=== PATIENT | female | born 1985 ===

== ENCOUNTER 2017-08-16 04:00 | Inpatient (IN) ==
[2017-08-16] MEDS ORDERED: miSOPROStol 25 MCG TABLET VG PRN (08:59)
[2017-08-16] MEDS ORDERED: Ondansetron 4 MG/2 ML VIAL IVP PRN ×2 (08:59→10:49)
[2017-08-16] MEDS ORDERED: Famotidine 20 MG/2 ML VIAL IVP PRN (08:59)
[2017-08-16] MEDS ORDERED: *HR* Nalbuphine 10 MG/ML AMPUL IVP PRN (08:59)
[2017-08-16] MEDS ORDERED: Metoclopramide 10 MG/2 ML VIAL IVP PRN (08:59)
[2017-08-16] MEDS ORDERED: Naloxone 0.4 MG/ML INJ IVP PRN ×2 (08:59→10:49)
[2017-08-16] MEDS ORDERED: Ringers Solution, Lactated 1,000 ML IVC SCH (09:00)
--- NOTE | 2017-08-16 09:01 | OB/GYN History & Physical ---
Date of Encounter: 08/16/17 Time of Encounter: 09:01 Assessment and Plan (1) 40 weeks gestation of Current visit: Yes Status: Acute shortly after the patient arrived on L&D, she went to the bathroom and when she got on the bed, there was a prolonged deceleration lasting about 6 mins. I had a conversation with her and her about giving her a break for about two hrs before attempting induction. heart rate is CAT 1 now. History of Present Illness HPI: Ms. Beasley is a 32 year old female @ 40+2 weeks who presents to the office for IOL. She does not report LOF or VB, she has occassional ctxs. She is on suppressive therapy with Valtrex, GBS neg. Past Med Surg Social Fam HX - Past Medical History Medical history: asthma Psychiatric history: no psych history - Past Surgical History Surgical History: no surgical history - Social History Smoking Status: Never smoker Smokeless Tobacco Status: No Alcohol use: none Drug use: none - Family History Mother Family Member Ethnicity: Non- Living Status: Still Living Hx Family Cardiac Disorders: No Hx Family Respiratory Disorders: No Hx Family Cancer: No Hx Family GI Disorders: No Hx Family Endocrine Disorder: No Hx Family Neuromuscular Disorders: No Hx Family Neurologic Disorders: No Hx Family HEENT Disorders: No Hx Family Autoimmune Disorders: No Obstetrical History - Pregnancies : 1 Medications and Allergies Vit Calc,Iron,Folic [ Vitamins] 1 / PO DAILY 05/25/17 [History] 3 Allergy/AdvReac Type Severity Reaction Status Date / Time No Known Allergies Allergy Verified 05/01/17 13:16 Review of System OB All systems PM: reviewed and no additional remarkable complaints except as stated Exam - Constitutional Constitutional: no acute distress - HEENT HEENT: PERRL - Neck Neck exam: full ROM - Lungs Respiratory exam: CTAB - Cardiovascular Cardiovascular exam: RRR - Abdomen Abdomen: Present: gravid - Cervix Dilation: 1 Effacement: 80 Results Result Diagrams: 08/16/17 09:00 All other labs normal.
[2017-08-16 09:34] LABS: Basophils % 0.1 %; Eosinophils # 0.1 K/mcL (0.0-0.6); Eosinophils % 1.9 %; Hematocrit 38.1 % (35.3-44.9); Hemoglobin 13.1 g/dL (11.5-15.4); Immature Granulocytes % 0.4 % (0-4); Lymphocytes # 1.2 K/mcL (0.6-4.6); Lymphocytes % 17.6 %; Mean Corpuscular HGB Conc 34.4 g/dL (31.6-35.5); Mean Corpuscular Hemoglobin 30.1 pg (28.0-33.3); Mean Corpuscular Volume 87.6 fL (83.0-100.0); Mean Platelet Volume 9.4 fL (9.4-12.4); Monocytes # 0.6 K/mcL (0.0-1.3); Monocytes % 7.9 %; Platelet Count 218 K/mcL (140-400); Red Blood Count 4.35 M/mcL (3.82-4.97); Red Cell Distribution Width 13.7 % (11.5-14.5); Segmented Neutrophils % 72.1 %
[2017-08-16 10:04] LABS: Amphetamine Screen,Urine Negative ng/mL (Cutoff=1000); Barbiturate Screen,Urine Negative ng/mL (Cutoff=200); Benzodiazepines Screen,Urine Negative ng/mL (Cutoff=200); Cannabinoid Screen,Urine Negative ng/mL (Cutoff = 50); Cocaine Screen,Urine Negative ng/mL (Cutoff= 300); Opiate Screen,Urine Negative ng/mL (Cutoff=300); Phencyclidine Screen,Urine Negative ng/mL (Cutoff=25)
--- NOTE | 2017-08-16 10:07 | Anesthesia Evaluation PreOp ---
Date of Encounter: 08/16/17 Time of Encounter: 10:05 - Past History Planned Operation: Primary Cardiac History: Denies any Significant Hx, Arrhythmia (Hx of arrythmia evaluated by dx approximately 2016 in [place] - Not requiring any medications.) Pulmonary History: Asthma (uses ProAir inhaler as needed), THERESA Dx (denies) [employer] History: Denies Any Significant HX Other Medical History: Denies Any Significant HX Anesthesia History: No Prior Anesthetic Complications, Past Anesthesia (B- inguinal hernia repair as child), MH (NO Fam Hx of MH) : Yes (40 +2/7) Alcohol Use: none Drug use: none Medications and Allergies Vit Calc,Iron,Folic [ Vitamins] 1 / PO DAILY 05/25/17 [History] 3 Allergy/AdvReac Type Severity Reaction Status Date / Time No Known Allergies Allergy Verified 05/01/17 13:16 - Meds/Allergy Pre-op Review Medications Reviewed: Yes Allergies Reviewed: Yes Beta Blockers on Current Med List: No Anesthesia Results - Labs 08/16/17 09:00 Laboratory Results WBC 7.0 K/mcL (4.3-11.1) 08/16/17 09:00 RBC 4.35 M/mcL (3.82-4.97) 08/16/17 09:00 Hgb 13.1 g/dL (11.5-15.4) 08/16/17 09:00 Hct 38.1 % (35.3-44.9) 08/16/17 09:00 MCV 87.6 fL (83.0-100.0) 08/16/17 09:00 MCH 30.1 pg (28.0-33.3) 08/16/17 09:00 MCHC 34.4 g/dL (31.6-35.5) 08/16/17 09:00 RDW 13.7 % (11.5-14.5) 08/16/17 09:00 Plt Count 218 K/mcL (140-400) 08/16/17 09:00 MPV 9.4 fL (9.4-12.4) 08/16/17 09:00 Immature Gran % 0.4 % (0-4) 08/16/17 09:00 Seg Neutrophils % 72.1 % 08/16/17 09:00 Lymphocytes % 17.6 % 08/16/17 09:00 Monocytes % 7.9 % 08/16/17 09:00 Eosinophils % 1.9 % 08/16/17 09:00 Basophils % 0.1 % 08/16/17 09:00 Neutrophils # 5.0 K/mcL (1.6-8.9) 08/16/17 09:00 Lymphocytes # 1.2 K/mcL (0.6-4.6) 08/16/17 09:00 Monocytes # 0.6 K/mcL (0.0-1.3) 08/16/17 09:00 Eosinophils # 0.1 K/mcL (0.0-0.6) 08/16/17 09:00 Basophils # 0.0 K/mcL (0.0-0.2) 08/16/17 09:00 Urine Opiates Screen Negative ng/mL (Tocdxz=134) 08/16/17 09:17 Ur Barbiturates Screen Negative ng/mL (Tuxmto=229) 08/16/17 09:17 Ur Phencyclidine Scrn Negative ng/mL (Cutoff=25) 08/16/17 09:17 Ur Amphetamines Screen Negative ng/mL (Pjeqlk=7439) 08/16/17 09:17 U Benzodiazepines Scrn Negative ng/mL (Lbvybc=446) 08/16/17 09:17 Urine Cocaine Screen Negative ng/mL (Cutoff= 300) 08/16/17 09:17 U Marijuana (THC) Screen Negative ng/mL (Cutoff = 50) 08/16/17 09:17 Anesthesia Exam Intake and Output 08/15/17 08/16/17 08/16/17 23:59 07:59 15:59 Other: Weight 143 kg Patient Weight 08/16/17 23:59 Weight 143 kg Height: 5'1" Weight: 143# BMI = NPO (# of Hours): MNoc - HEENT Pupil (Motor): Pupils equal, EOMI Mallampati: II Teeth: Normal (Braces/REtainer) Oral Opening: Greater than 3 - [employer] LOC: Oriented [employer] Motor: Normal RUE, Normal LUE, Normal RLE, Normal LLE, Normal Face [employer] Sensory: Normal: RUE, LUE, RLE, LLE, Face - Cardiac Rhythm: Regular Murmur: None - Pulmonary Breath Sounds: bilateral Clear Respiratory Effort: Symmetrical Anesthesia Assess/Plan ASA Score: 2 Modified [place] Scale for Level of Consciousness: Cooperative, oriented, and tranquil Anesthetic Plan: General, Regional Monitoring Plan: Standard Monitors Recovery Plan: PACU Anes Supervising Prov Stmt: Pt seen/evaluated, R&B discussed, questions answered and consent obtained. Amada Romeo MD
[2017-08-16] MEDS ORDERED: EPHEDrine 50 MG/ML VIAL ONE (10:08)
[2017-08-16] MEDS ORDERED: Water for inj. (sterile) 10 ML IV ONE (10:08)
[2017-08-16] MEDS ORDERED: Ondansetron 4 MG/2 ML VIAL ONE (10:09)
[2017-08-16] MEDS ORDERED: *HR* Oxytocin 10 UNIT/ML VIAL IM ONE (10:09)
[2017-08-16] MEDS ORDERED: Lidocaine -MPF 1% 5 ML AMPUL ONE (10:10)
[2017-08-16] MEDS ORDERED: *HR* Morphine 2 MG/ML SYRINGE IVP PRN (10:49)
[2017-08-16] MEDS ORDERED: Ibuprofen 400 MG TABLET PO PRN (10:49)
[2017-08-16] MEDS ORDERED: *HR* OxyCODONE/APAP 5/325 TABLET PO PRN (10:49)
[2017-08-16] MEDS ORDERED: Acetaminophen IV 1,000 MG/100 ML INFUS..BTL IVPB ONE (10:53)
--- NOTE | 2017-08-16 17:18 | OB Labor Progress Note ---
Date of Encounter: 08/16/17 Time of Encounter: 17:16 Labor Progress Note - Subjective Subjective: cytotec placed at 1556hrs, patient doing well, having occ ctxs, FHT CAT 1 so far - Vital Signs Vital Signs: VSS - Cervix Cervix: 1-2/80% - Heart Tones Heart Tones: CAT 1 - Plan Plan: will start pitocin after cytotec#1 is completed, ok for epidural if patient desires
[2017-08-16] MEDS ORDERED: Oxytocin 20 units/ LR 1000 mL 20 UNIT/1,000 ML BAG IVC SCH (18:30)
--- NOTE | 2017-08-16 22:59 | OB Labor Progress Note ---
Date of Encounter: 08/17/17 Time of Encounter: 22:59 Labor Progress Note - Subjective Subjective: patient doing well - Vital Signs Vital Signs: VSS - Cervix Cervix: 5 - Heart Tones Heart Tones: CAT 1 - Plan Plan: patient with spont rupture, has epidural, on pit, aniticipate
[2017-08-16] MEDS ORDERED: Ringers Solution, Lactated 500 ML IVC ONE (23:08)
[2017-08-16] MEDS ORDERED: Epidural Premix (fent/bupiv) 110 ML EP ONE (23:12)
[2017-08-16] MEDS ORDERED: Epidural Premix (fent/bupiv) 110 ML EP SCH (23:15)
--- NOTE | 2017-08-16 23:46 | Anesthesia Procedures ---
Date of Encounter: 08/16/17 Time of Encounter: 23:44 Procedures: Anesthesia - Epidural/Spinal Patient ID/Chart reviewed: Yes Patient examined: Yes OB Eval: Gestational age: 40 OB Eval: : 1 OB Eval: Hx Para: 0 OB Eval: Dilated at (cm): 3 OB Eval: Contractions: Non-stressed pattern Consent Obtained: Yes Supplemental Oxygen: None/Room Air Site Prep: Aseptic Technique, Sterile prep and drape, Povidone-Iodine 1% Patient position: upright Local Anesthetic: Lidocaine 1% Amount of Local Anesthetic used: 3 Touhy Needle Gauge: 18 Touhy Needle Depth (cm): 7 Catheter Depth at Skin (cm): 18 Test Dose (1.5% Lido + Epi): Volume given (mls): 5 Test Dose Result: Negative Loading Dose: Other: 10mls of epidural pharm bag premix solution Loading Dose Administered: Thru Catheter Infusion Med: 0.125% Bupivacaine w/ 2 mcg/ml Fentanyl Infusion Rate (mls/hr): 12 ([id number] pcea) Catheter Secured in Place: Tegaderm, Tape Interspace Used: L3-L4 Loss of Resistance (ADAM): Yes Blood: No CSF: No Paresthesia: No Procedure: pt tolerated procedure well. no complications. vss. fhr stable throughout procedure. see nursing notes for complete vitals. present in room d/t communication issues.
--- NOTE | 2017-08-17 02:49 | OB/GYN Procedure Note ---
Delivery - Delivery Date: 08/17/17 Provider: Mayito Foster Intrapartum events: none Delivery induction: oxytocin, misoprostol Delivery augmentation: pitocin Delivery monitor: none Anesthesia: epidural Estimated Blood Loss: 300 - Repair Episiotomy: none Laceration Description: Perineal - 2nd Degree - Complications Delivery complications: none - Disposition Mom disposition: stable in LDR Newsoms disposition: stable in LDR - Comments Comments: 32 y/o now delivered a viable male via vacuum assisted delivery secondary to maternal exhaustion @ 0219hrs. Infant delivered ALEXANDRA, APGARs 9/9, weight 3450g (7lbs 10oz), cord clamped and cut with placed on Mom' chest. Placenta delivered @ 0223hrs. EBL 300, 2nd degree laceration repaired with 3-0 vicryl, mother and infant stable.
[2017-08-17] MEDS ORDERED: Acetaminophen 325 MG TABLET PO PRN (10:24)
[2017-08-17] MEDS ORDERED: Prenatal Vit/FA 1 EACH TABLET PO SCH (11:15)
[2017-08-17] MEDS: Ibuprofen 600 MG TABLET PO PRN ×2 (13:42→19:55)
[2017-08-18] MEDS: Ibuprofen 600 MG TABLET PO PRN ×2 (02:08→13:15)
[2017-08-18 08:12] VITALS: BP 108/65
--- NOTE | 2017-08-18 10:25 | Discharge Summary ---
Date of Encounter: 08/18/17 Time of Encounter: 10:15 - Discharge Diagnosis (1) Status post normal vaginal delivery Priority: Primary Status: Acute Comments: Patient doing well Pain well controlled Ambulating and Voiding without difficulty Passing gas Tolerating PO intake without difficulty Anticipate discharge today with outpatient PP follow-up - Discharge Medications Prescriptions: Ibuprofen [Motrin] 600 mg PO Q6HR PRN #30 tablet PRN Reason: cramping Breast Pump [BREAST PUMP] 1 each .ROUTE AD #1 each Docusate [Colace] 100 mg PO BID #30 capsule Home Medications: Vit Calc,Iron,Folic [ Vitamins] 1 / PO DAILY 05/25/17 [History] Breast Pump [BREAST PUMP] 1 each .ROUTE AD #1 each 08/18/17 [Rx] Docusate [Colace] 100 mg PO BID #30 capsule 08/18/17 [Rx] Ibuprofen [Motrin] 600 mg PO Q6HR PRN #30 tablet 08/18/17 [Rx] Allergies/Adverse Reactions: 3 Allergy/AdvReac Type Severity Reaction Status Date / Time No Known Allergies Allergy Verified 05/01/17 13:16 Data Procedures and tests throughout hospitalization: Laboratory Tests 08/16/17 08/16/17 09:00 09:17 WBC 7.0 RBC 4.35 Hgb 13.1 Hct 38.1 MCV 87.6 MCH 30.1 MCHC 34.4 RDW 13.7 Plt Count 218 MPV 9.4 Immature Gran % 0.4 Seg Neutrophils % 72.1 Lymphocytes % 17.6 Monocytes % 7.9 Eosinophils % 1.9 Basophils % 0.1 Neutrophils # 5.0 Lymphocytes # 1.2 Monocytes # 0.6 Eosinophils # 0.1 Basophils # 0.0 Urine Opiates Screen Negative Ur Barbiturates Screen Negative Ur Phencyclidine Scrn Negative Ur Amphetamines Screen Negative U Benzodiazepines Scrn Negative Urine Cocaine Screen Negative U Marijuana (THC) Screen Negative Date of admission: 08/16/17 08:05 Primary care physician: PCP NONE Consults: 08/17/17 10:24 Consult to Supervisor Underwriting Clerks [CONS] Routine Comment: Vaginal delivery, consult needed Discharging clinician: Clemente Romeo Anticipated date of discharge: 08/18/17 - Patient Status Disposition: Home, Self-Care Condition: Good Functional capacity at discharge: independent ambulation Overall status at discharge: patient is back to baseline - Discharge Instructions Follow Up With: NONE,PCP [Primary Care Provider] - - Diet and Activity Activity: increase activity as tolerated, return to work once cleared by your PCP/specialist Diet: advance to your usual diet Hospital Course Procedures: Vacuum assisted vaginal delivery Reason for admission: induction of labor Delivery: Episiotomy: none Laceration: 2nd degree (perineal) Other procedures: none complications: none Discharge diagnosis: IUP at term delivered baby: male Hospital course: Delivery Date: 08/17/17 Provider: Mayito Foster Intrapartum events: none Delivery induction: oxytocin, misoprostol Delivery augmentation: pitocin Delivery monitor: none Anesthesia: epidural Estimated Blood Loss: 300 - Repair Episiotomy: none Laceration Description: Perineal - 2nd Degree - Complications Delivery complications: none - Disposition Mom disposition: stable in LDR [place] disposition: stable in LDR - Comments Comments: 32 y/o now delivered a viable male via vacuum assisted delivery secondary to maternal exhaustion @ 0219hrs. delivered ALEXANDRA, APGARs 9/9, weight 3450g (7lbs 10oz), cord clamped and cut with placed on Mom' chest. Placenta delivered @ 0223hrs. EBL 300, 2nd degree laceration repaired with 3-0 vicryl, mother and stable. Time Attestation: Total time spent providing and/or coordinating discharge services: Time Spent: Greater than 30 minutes Exam - Constitutional Vitals: Temp Pulse Resp BP Pulse Ox 98.7 F 92 16 108/65 92 08/18/17 08:11 08/18/17 08:11 08/18/17 08:11 08/18/17 08:11 08/18/17 08:11 General appearance IM: A&O X 3 - Respiratory Respiratory exam: Present: CTAB - Cardiovascular Cardiovascular exam IM: Present: RRR, +S1, +S2 - GI/Abdominal GI/Abdominal exam IM: hypoactive bowel sounds, no peritoneal signs - Uterus Position: At Umbilicus - Extremities Exam Extremities exam IM: Present: full ROM, radial pulses palpable and symmetrical - Neurological Exam Neurological exam: alert, oriented X3 - Psychiatric Additional comments: Patient's mood is good - Attending Attestation I examined this patient and my medical decision-making was reviewed with the Resident Physician. I agree with the documented findings, disposition and treatment plan as described. Sagar Jeronimo CNM
== END 2017-08-18 17:15 | disposition home or self-care (01) | DRG 775 ==
LOC: 1NENULAB 08:05 → 1NENUOBS 08-17 05:11
PROVIDERS: ADMIT Student in an Organized Health Care Education/Training Program; ATTEND Student in an Organized Health Care Education/Training Program